=== PATIENT | male | born 1950 | race Caucasian/White ===

== ENCOUNTER 2019-03-23 04:49 | Inpatient (IN) ==
[~2019-03-23 04:49] MED LIST: ATIVAN ONE
[2019-03-23] MEDS ORDERED: ATIVAN IV ONE ×3 (04:52→07:51)
[2019-03-23 05:10] LABS: BE -11.1 mmoll (-3.0-3.0); BLOOD TYPE ARTERIAL; HCO3-(ACT) 16.2 mmoll (20.0-26.0); METHB 1.1 % (0.0-1.5); O2(CT) 22.2 mL/dL (15.0-23.0); O2HB 95.9 % (95.0-99.0); PCO2(98.6) 30 mmHg (35-45); PO2(98.6) 94 mmHg (60-100); SAMPLE BLOOD; SAO2 98.8 % (95.0-100.0); THB 16.4 g/dL (11.5-17.4); pH(98.6) 7.28 (7.35-7.45)
[2019-03-23 05:13] LABS: ALLEN TEST YES; MODALITY ROOM AIR
[2019-03-23 05:20] LABS: BASO# 0.08 X1000 (0.0-0.2); BASO% 0.7 % (0.0-0.8); EOS# 0.44 X1000 (0.0-0.7); EOS% 3.7 % (0.0-10.0); HEMATOCRIT 47.9 % (42.0-52.0); HEMOGLOBIN 15.5 g/dL (14.0-18.0); IMM GRAN# 0.09 X1000 (0.0-0.04); IMM GRAN% 0.7 % (0.0-0.5); LYMPH# 5.63 X1000 (1.2-3.4); LYMPH% 46.8 % (20.5-51.1); MCH 28.4 PG (27-31); MCHC 32.4 g/dL (33-37); MCV 87.9 FL (81-99); MONO# 0.71 X1000 (0.11-0.59); MONO% 5.9 % (1.7-9.3); MPV 9.9 FL (7.4-10.4); NEUT# 5.08 X1000 (1.4-6.5); NEUT% 42.2 % (42.2-75.2); PLT 262 X1000 (130-400); RBC 5.45 XMIL (4.7-6.1); RDW 13.5 % (11.5-14.5); WBC 12.03 X1000 (4.8-10.8)
[2019-03-23 05:34] LABS: AGAP 27; ALKALINE PHOSPHATASE 85 U/L (32-122); BUN 7 mg/dL (8-22); CALCIUM 10.1 mg/dL (8.8-10.2); CHLORIDE 99 mmol/L (98-107); CK PROFILE 104 U/L (24-204); COSMO 288; CREATININE 0.8 mg/dL (0.7-1.2); ESTIMATED GFR > 60; GLUCOSE 195 mg/dL (70-104); GOT 22 U/L (10-34); GPT 20 U/L (10-44); POTASSIUM 4.4 mmol/L (3.5-5.1); SODIUM 143 mmol/L (136-145); TCO2 17 mmol/L (25-35); TOTAL PROTEIN 7.8 g/dL (6.3-8.3)
[2019-03-23 05:40] LABS: INR 1.04; PROTIME 14.1 Seconds (11.0-16.0)
[2019-03-23 05:41] LABS: PTT 27.3 Seconds (22.3-41.8)
[2019-03-23] MEDS ORDERED: NS 1,000 ML IV ONE ×2 (05:46)
--- NOTE | 2019-03-23 06:39 | PROVIDER DOCUMENTATION ---
HPI-Neurological Disorder - General Chief Complaint: Altered Mental Status Stated Complaint: Syncope Time Seen by Provider: 03/23/19 05:41 Source: family, EMS Allergies/Adverse Reactions: Patient Allergies Allergy/AdvReac Type Severity Reaction Status Date / Time Latex, Natural Rubber Allergy RASH Verified 03/23/19 07:41 Home Medications: Home Medication List Medication Instructions Recorded Confirmed Last Taken Type NK [No Home Medications] 03/23/19 03/23/19 Unknown History - History of Present Illness-Neuro Nature of Presenting Problem: hx of dementia out this morning with the dog reportedly fell backward screamed fell hitting forehead on a step thinks he was briefly unconscious Severity: reports: severe Onset/Duration: reports: just prior to arrival Timing: reports: still present, improving Context: reports: head injury Review of Systems - Adult - REVIEW OF SYSTEMS - ADULT Constitutional: reports: no symptoms reported Eyes: reports: no symptoms reported Ears, Nose, Mouth & Throat: reports: no symptoms reported Cardiovascular: reports: no symptoms reported Respiratory: reports: no symptoms reported Gastrointestinal: reports: no symptoms reported Genitourinary: reports: no symptoms reported Musculoskeletal: reports: no symptoms reported Integumentary: reports: no symptoms reported Neurological: reports: no symptoms reported Psychiatric: reports: other (demented) Endocrine: reports: no symptoms reported Hematologic/Lymphatic: reports: no symptoms reported Allergic/Immunologic: reports: no symptoms reported Past History - Adult - PAST MEDICAL HISTORY-ADULT Review of Records: reports: Nursing Assessment Review, Medications Reviewed, Social history reviewed & non-contributory. Major Childhood Illnesses: reports: denies history Cardiovascular: reports: denies history Respiratory: reports: denies history Gastrointestinal: reports: denies history Obstetrical/Gynecological: reports: denies history Genitourinary: reports: denies history Musculoskeletal: reports: denies history Neurological: reports: denies history Endocrine/Immune: reports: denies history Other Conditions: reports: denies history - IMMUNIZATION STATUS Childhood Immunizations: See Nurse Assessment Flu Vaccine: See Nurse Assessment - FAMILY HISTORY Family History: reviewed, not pertinent Physical Exam- Neurological - Physical Exam-Neuro Initial Vital Signs Reviewed: Yes General Appearance: combative Eye Exam: bilateral eye: normal inspection, PERRL, EOMI HENMT: normocephalic/atraumatic, normal ENT inspection Head Injury: no evidence of injury Neck: full range of motion Respiratory: lungs clear, normal breath sounds Cardiovascular: normal peripheral pulses, regular rate, rhythm Abdominal Exam: non tender, soft, no organomegaly Lymphatic: no adenopathy Extremity: normal range of motion, non-tender, normal gait Motor/Sensory: no motor deficit Neurologic: grossly normal Integumentary: normal color, normal turgor, abrasion(s) Psych/Mental Status: disoriented x 3 Progress - PLAN OF CARE/RESULTS Progress/Plan/Lab Results: Vital Signs - 8 hr 03/23/19 05:26 03/23/19 05:39 03/23/19 05:45 Temperature 97.8 F Pulse Rate 100 H 110 H Respiratory Rate 18 15 Blood Pressure 157/81 146/88 O2 Sat by Pulse Oximetry 97 97 Laboratory Results - last 24 hr 03/23/19 03/23/19 03/23/19 05:00 05:02 05:02 WBC 12.03 H RBC 5.45 Hgb 15.5 Hct 47.9 MCV 87.9 MCH 28.4 MCHC 32.4 L RDW Std Deviation 13.5 Plt Count 262 MPV 9.9 Immature Gran % (Auto) 0.7 H Neut % (Auto) 42.2 Lymph % (Auto) 46.8 Greenlee % (Auto) 5.9 Eos % (Auto) 3.7 Baso % (Auto) 0.7 Immature Gran # (Auto) 0.09 H Neut # (Auto) 5.08 Lymph # (Auto) 5.63 H Greenlee # (Auto) 0.71 H Eos # (Auto) 0.44 Baso # (Auto) 0.08 PT INR PTT (Actin FS) Specimen Type ARTERIAL Sample Site R BRACHIAL pH 7.28 L pCO2 30 L pO2 94 HCO3 16.2 L Base Excess -11.1 L Oxyhemoglobin 95.9 ABG O2 Sat (Calculated) 22.2 ABG O2 Saturation 98.8 ABG Carboxyhemoglobin 1.70 ABG Methemoglobin 1.1 Yaw Test YES A-a O2 Difference 18.0 Total Hemoglobin 16.4 Lactate 12.00 H* Blood Gas Modality ROOM AIR FiO2 % 21.0 Sodium Potassium Chloride Carbon Dioxide Anion Gap BUN Creatinine Estimated GFR/1.73 m2 BUN/Creatinine Ratio Glucose Calculated Osmolality Calcium Total Bilirubin AST ALT Alkaline Phosphatase Creatine Kinase Troponin T High Sens Total Protein Albumin Globulin Albumin/Globulin Ratio Plasma Lactate Plasma/Serum Ethyl Alc 1 H 03/23/19 03/23/19 03/23/19 05:02 05:02 05:02 WBC RBC Hgb Hct MCV MCH MCHC RDW Std Deviation Plt Count MPV Immature Gran % (Auto) Neut % (Auto) Lymph % (Auto) Greenlee % (Auto) Eos % (Auto) Baso % (Auto) Immature Gran # (Auto) Neut # (Auto) Lymph # (Auto) Greenlee # (Auto) Eos # (Auto) Baso # (Auto) PT 14.1 INR 1.04 PTT (Actin FS) 27.3 Specimen Type Sample Site pH pCO2 pO2 HCO3 Base Excess Oxyhemoglobin ABG O2 Sat (Calculated) ABG O2 Saturation ABG Carboxyhemoglobin ABG Methemoglobin Yaw Test A-a O2 Difference Total Hemoglobin Lactate Blood Gas Modality FiO2 % Sodium 143 Potassium 4.4 Chloride 99 Carbon Dioxide 17 L Anion Gap 27 BUN 7 L Creatinine 0.8 Estimated GFR/1.73 m2 > 60 BUN/Creatinine Ratio 9 Glucose 195 H Calculated Osmolality 288 Calcium 10.1 Total Bilirubin 2.30 H AST 22 ALT 20 Alkaline Phosphatase 85 Creatine Kinase 104 Troponin T High Sens Total Protein 7.8 Albumin 5.0 Globulin 3.0 Albumin/Globulin Ratio 2.0 Plasma Lactate 10.1 H* Plasma/Serum Ethyl Alc 03/23/19 05:02 WBC RBC Hgb Hct MCV MCH MCHC RDW Std Deviation Plt Count MPV Immature Gran % (Auto) Neut % (Auto) Lymph % (Auto) Greenlee % (Auto) Eos % (Auto) Baso % (Auto) Immature Gran # (Auto) Neut # (Auto) Lymph # (Auto) Greenlee # (Auto) Eos # (Auto) Baso # (Auto) PT INR PTT (Actin FS) Specimen Type Sample Site pH pCO2 pO2 HCO3 Base Excess Oxyhemoglobin ABG O2 Sat (Calculated) ABG O2 Saturation ABG Carboxyhemoglobin ABG Methemoglobin Yaw Test A-a O2 Difference Total Hemoglobin Lactate Blood Gas Modality FiO2 % Sodium Potassium Chloride Carbon Dioxide Anion Gap BUN Creatinine Estimated GFR/1.73 m2 BUN/Creatinine Ratio Glucose Calculated Osmolality Calcium Total Bilirubin AST ALT Alkaline Phosphatase Creatine Kinase Troponin T High Sens 9 Total Protein Albumin Globulin Albumin/Globulin Ratio Plasma Lactate Plasma/Serum Ethyl Alc Orders Category Date Time Status Cardiac Monitoring DIRECTED Care 03/23/19 04:51 Active Finger Stick Blood Sugar (ED) DIRECTED Care 03/23/19 04:51 Active Oxygen Therapy- ED Nursing DIRECTED Care 03/23/19 04:51 Active Restraint Initiate NonViolent ONCE Care 03/23/19 05:08 Active Saline Loc NOW Care 03/23/19 04:51 Active CHEST-PORTABLE [RAD] Stat Exams 03/23/19 04:[address] HEAD W/O CONTRAST [CT] Stat Exams 03/23/19 05:05 Taken ABG [RESP] Routine Lab 03/23/19 05:00 Completed ALCOHOL BLOOD Stat Lab 03/23/19 05:02 Completed CBC WITH ELECTRONIC DIFF [HEME] Stat Lab 03/23/19 05:02 Completed CK PROFILE [SP CHEM] Stat Lab 03/23/19 05:02 Completed COMPREHENSIVE METABOLIC PANEL [CHEM] Stat Lab 03/23/19 05:02 Completed LACTATE, PLASMA [CHEM] Stat Lab 03/23/19 05:02 Completed PROTIME WITH INR [COAG] Stat Lab 03/23/19 05:02 Completed PTT [COAG] Stat Lab 03/23/19 05:02 Completed TROPONIN T HIGH SENSITIVITY Stat Lab 03/23/19 05:02 Completed URINE DRUG SCREEN PL Stat Lab 03/23/19 04:51 Uncollected 0.9% Sodium Chloride Inj [Ns] 1,000 ml Med 03/23/19 05:46 Active IV 999 mls/hr 0.9% Sodium Chloride Inj [Ns] 1,000 ml Med 03/23/19 05:46 Discontinued IV 999 mls/hr Lorazepam [Ativan] Med 03/23/19 04:52 Discontinued 1 mg IV NOW ONE Lorazepam [Ativan] Med 03/23/19 05:13 Discontinued 1 mg IV NOW ONE Lorazepam [Ativan] Med 03/23/19 04:49 Discontinued 2 mg .ROUTE .STK-MED ONE Altered Mental Status Stat Oth 03/23/19 04:49 Ordered EKG [EKG] Stat Ther 03/23/19 04:51 Ordered Result Diagrams: 03/23/19 05:02 03/23/19 05:02 - REASSESSMENT Reassessment #1 Time Reassessed: 07:25 Status: other (pt restless, will admit. administer ativan 1 mg.) - EKG 1 Time of EKG reading by physician:: 07:32 EKG Interpretation (*Must complete 3 of following elements*): Abnormal Rate: 120 ST Wave: non-specific ST changes Comments: Sinus tachycardia - XRAY 1 XRAY Study: Chest Impression: Abnormal (interstital markings increasd) - CT/MRI 1 CT Study: Head Impression: Normal - CONSULTS/PCP/HOSPITALIST Notification #1 *Consult/PCP/Hospitalist*: Dr Nielson Time Discussed: 07:30 Consult Disposition: Will see in ED, Admit Departure - Departure Date of Disposition Decision: 03/23/19 Time of Disposition Decision: 07:30 DIAGNOSIS: AMS (altered mental status), Fall, Dementia Disposition: ADMITTED INPATIENT 09 Certified Medical Emergency: Emergent Condition: Stable Referrals and Follow-Ups: Julieta Viera CRNP [Primary Care Provider] - - Critical Care Note This patient required my direct & personal management of CC.: No Attestation - Physician/ LOBITO Attestation Patient care was provided by Advanced Practice Provider:: No The physician spent face to face time with patient:: Yes Advanced Practice Provider documentation review:: Supervising physician onsite and consulted in the evaluation and care of this patient. The physician did have a face to face encounter with the patient.
--- NOTE | 2019-03-23 06:40 | Diag Imaging Result Doc PS360 ---
CT HEAD W/O CONTRAST - 03/23/2019 INDICATION: ams/ injury COMPARISON: 11/23/2018 FINDINGS: Stable mild cerebral atrophy diffusely. No intracranial mass or hemorrhage. The skull is intact. The sinuses, mastoids, and middle ears are clear. Soft tissues are clear. IMPRESSION: No acute injury. This exam was performed using automated exposure control, adjustment of mA or kV according to patient size, and/or use of iterative reconstruction technique Electronically signed by Eulogio Woods 03/23/2019 6:37 AM
[2019-03-23 06:44] LABS: BE -2.7 mmoll (-3.0-3.0); BLOOD TYPE ARTERIAL; HCO3-(ACT) 22.7 mmoll (20.0-26.0); METHB 1.4 % (0.0-1.5); O2(CT) 20.5 mL/dL (15.0-23.0); O2HB 94.6 % (95.0-99.0); PCO2(98.6) 40 mmHg (35-45); PO2(98.6) 76 mmHg (60-100); SAMPLE BLOOD; SAO2 97.7 % (95.0-100.0); THB 15.4 g/dL (11.5-17.4); pH(98.6) 7.36 (7.35-7.45)
[2019-03-23] MEDS ORDERED: ROCEPHIN 1 GM in NS 50 ML IV ONE (06:48)
[2019-03-23 06:49] LABS: ALLEN TEST YES; MODALITY ROOM AIR
[2019-03-23 06:55] LABS: UR AMPHETAMINES QUAL NONE DETECTED (NONE DETECT); UR BARBITUATES QUAL NONE DETECTED (NONE DETECT); UR BENZODIAZEPIN QUAL NONE DETECTED (NONE DETECT); UR CANNABINOIDS QUAL NONE DETECTED (NONE DETECT); UR COCAINE QUAL NONE DETECTED (NONE DETECT); UR METHADONE QUAL NONE DETECTED (NONE DETECT); UR METHAMPHETAMINE QUAL NONE DETECTED (NONE DETECT); UR OPIATES QUAL NONE DETECTED (NONE DETECT); UR OXYCODONE QUAL NONE DETECTED (NONE DETECT); UR PCP QUAL NONE DETECTED (NONE DETECT); UR PROPOXYPHENE QUAL NONE DETECTED (NONE DETECT); UR TCA QUAL NONE DETECTED (NONE DETECT)
[2019-03-23 07:03] LABS: URINE SOURCE CATH
--- NOTE | 2019-03-23 07:38 | Diag Imaging Result Doc PS360 ---
EXAM: CHEST-PORTABLE - 03/23/2019 HISTORY: ams TECHNIQUE: Portable chest COMPARISON: 11/23/2018 FINDINGS: Heart size is normal. Inspiration is mildly shallow. Lungs appear essentially clear. There is no consolidation, pleural effusion, or pneumothorax identified. IMPRESSION: Mildly shallow inspiration. No other evidence of acute disease. Electronically signed by Kobe Frances 03/23/2019 7:35 AM
[2019-03-23] MEDS ORDERED: NS 1,000 ML ONE (07:50)
[2019-03-23 08:02] LABS: UR EPITHELIAL CELLS <10 /HPF (<10); URINE BACTERIA NEGATIVE /HPF; URINE CASTS NONE SEEN; URINE RBC <10 /HPF (<10); URINE WBC <10 /HPF (<10); URINE YEAST NONE SEEN
[2019-03-23 08:03] LABS: BILIRUBIN URINE NEGATIVE (NEGATIVE); BLOOD URINE NEGATIVE (NEGATIVE); COLOR YELLOW; GLUCOSE URINE 70 mg/dL (NEGATIVE); KETONE URINE 10 mg/dL (NEGATIVE); SP GRAVITY URINE 1.014; TURBIDITY URINE HAZY (CLEAR); URINE CRYSTALS NONE SEEN; URINE SMALL ROUND CELLS NONE SEEN
[2019-03-23 08:04] LABS: NITRITE URINE NEGATIVE (NEGATIVE); PROTEIN URINE 20 mg/dL (NEGATIVE); UROBILINOGEN URINE 2 mg/dL (NORMAL)
[2019-03-23 08:05] LABS: LEUKOCYTES URINE NEGATIVE (NEGATIVE)
--- NOTE | 2019-03-23 08:10 | EKG Report ---
Test Performed on : 03/23/2019 07:32:46 AM Test Reason : ams Blood Pressure : / mmHG Vent. Rate : 120 BPM Atrial Rate : 120 BPM P-R Int : 170 ms QRS Dur : 084 ms QT Int : 320 ms P-R-T Axes : 067 007 058 degrees QTc Int : 452 ms Sinus tachycardia. Possible Inferior infarct , age undetermined Abnormal ECG When compared with ECG of 23-NOV-2018 13:35, Vent. rate has increased BY 55 BPM Borderline criteria for Inferior infarct are now present Unconfirmed Result
[2019-03-23] MEDS ORDERED: ZOFRAN IV PRN (09:15)
[2019-03-23] MEDS: HALDOL IM PRN ×3 (10:50→22:50)
[2019-03-23] MEDS ORDERED: TYLENOL PR ONE (17:07)
[2019-03-23] MEDS ORDERED: PNEUMOVAX 23 IM ONE (18:27)
--- NOTE | 2019-03-23 20:15 | HISTORY AND PHYSICAL ---
CHIEF COMPLAINT: Fall, head injury, altered mental status. HISTORY OF PRESENT ILLNESS: This is a 68-year-old gentleman with a history of dementia, diabetes mellitus and hyperlipidemia. He presents to the emergency room via EMS with family members after falling. The and daughter state that the patient got up to check on his dogs. He fell backwards and hit his head. The family confirmed a positive loss of consciousness. They stated they called 911 and were advised to start CPR prior to EMS arrival. EMS reported that when they arrived on the scene, the patient was breathing with a pulse. Reportedly, the patient became combative during transport and required restraints on arrival to the emergency room. He was noted to have a right frontal forehead contusion with skin tears to bilateral elbows, is unsure when these were actually obtained. PAST MEDICAL HISTORY: 1. Diabetes mellitus. 2. Hyperlipidemia. 3. Dementia. 4. Prostate enlargement. PAST SURGICAL HISTORY: Denies. SOCIAL HISTORY: He is , lives with his . Denies any alcohol, tobacco, or illicit drug use. ALLERGIES: Latex, which causes a rash. HOME MEDICATIONS: None. REVIEW OF SYSTEMS: Unable to obtain. PHYSICAL EXAMINATION: GENERAL: This is a 68-year-old gentleman who is lying on the stretcher in the emergency room in no distress. VITAL SIGNS: Blood pressure is 142/83 with a heart rate of 100, respirations are 20, temperature is 97.8 degrees with O2 saturations that are 98% on 2 L nasal cannula. EYES: Pupils are equal, round, react to light. EOMs are intact. Sclerae anicteric. HEENT: Head is normocephalic, atraumatic. Mucous membranes are moist. NECK: Supple with trachea midline. CARDIOVASCULAR: Regular rate and rhythm. S1 and S2 appreciated. No murmur. Peripheral pulses are palpable x4 extremities. PULMONARY: Breath sounds are clear with no increased work of breathing noted. GASTROINTESTINAL: Abdomen is soft, nondistended, with bowel sounds in all 4 quadrants. NEUROLOGIC: He is alert. He is nonverbal. He does not follow commands. He moves extremities at random. He does withdraw from pain. SKIN: Warm and dry. LABORATORY DATA: WBC is 12.0 with hemoglobin 15.5, hematocrit 47.9, platelets 262,000. INR is 1.04. Sodium 143, potassium 4.4, BUN 7, creatinine 0.8 with a glucose of 195. CPK is 104 with a troponin of 9 and a lactate of 10. Urine drug screen reveals none detected. Blood alcohol 1. ABGs on arrival, pH is 7.28 with pCO2 30, pO2 94 and bicarb of 16.2 with a lactate of 12. This was on room air. At 6:30, pH is 7.36 with pCO2 of 40, pO2 of 76, bicarb of 22, and a lactate of 4. Blood cultures are pending. IMAGIN. CT of the head reveals no acute injury. Stable mild cerebral atrophy diffusely. No intracranial mass or hemorrhage. Skull is intact. Sinuses, mastoids, and middle ears are clear. Soft tissues are clear. 2. Chest x-ray: Mildly shallow inspiration. No other evidence of acute disease. ASSESSMENT AND PLAN: 1. Fall. 2. Questionable syncopal episode. 3. Altered mental status. 4. Dementia. 5. Diabetes mellitus. 6. Hyperlipidemia. 7. Leukocytosis. This could be reactive, most likely secondary to fall and chest compressions. PLAN: The patient will be admitted to the hospital. He will be placed on telemetry. We will continue restraints as needed for safety. Supplemental oxygen as needed. We will continue with the Julian catheter for accurate I and O, check blood sugars, pattern blood glucose with sliding scale insulin. We will identify his home medications and continue as appropriate when he is taking p.o. medications. We will use Zofran for nausea. We will give Haldol 5 mg IM q.4 hours p.r.n. agitation. We will check a CBC and a CMP and magnesium in the morning. The patient will be admitted to the medical-surgical floor. He will be placed in a room that has a view from the desk at all times with a bed alarm and fall precautions. Plan was discussed with Dr Nielson Further treatments pending hospital course. Dictated by BELLA Betancourt for Riky Nielson MD cc: BELLA Betancourt MD [facility]
--- NOTE | 2019-03-23 20:35 | HISTORY AND PHYSICAL ---
ADDENDUM: Patient presented to the hospital via his family. He does have a history of dementia. He apparently had gone out this morning to walk his dog. After coming back, the noticed that he was confused. He actually fell. They brought him to the hospital. Currently, he is altered, somewhat combative. We are going to admit him to the hospital, place him on antibiotics. His labs are normal. We will use Haldol as needed. We will check blood and urine cultures, and we will follow. cc: Riky Nielson MD
[2019-03-23] MEDS: HUMULIN R SUBQ SCH (22:51)
[2019-03-24] MEDS: HUMULIN R SUBQ SCH (06:03)
[2019-03-24 06:51] LABS: BASO# 0.02 X1000 (0.0-0.2); BASO% 0.2 % (0.0-0.8); EOS# 0.05 X1000 (0.0-0.7); EOS% 0.5 % (0.0-10.0); HEMATOCRIT 45.6 % (42.0-52.0); HEMOGLOBIN 15.2 g/dL (14.0-18.0); IMM GRAN# 0.02 X1000 (0.0-0.04); IMM GRAN% 0.2 % (0.0-0.5); LYMPH# 0.99 X1000 (1.2-3.4); LYMPH% 9.2 % (20.5-51.1); MCH 28.9 PG (27-31); MCHC 33.3 g/dL (33-37); MCV 86.7 FL (81-99); MONO# 0.89 X1000 (0.11-0.59); MONO% 8.2 % (1.7-9.3); NEUT# 8.84 X1000 (1.4-6.5); NEUT% 81.7 % (42.2-75.2); PLT 190 X1000 (130-400); RBC 5.26 XMIL (4.7-6.1); RDW 13.2 % (11.5-14.5); WBC 10.81 X1000 (4.8-10.8)
[2019-03-24 07:53] LABS: AGAP 15; ALBUMIN 4.6 g/dL (3.5-5.0); ALKALINE PHOSPHATASE 74 U/L (32-122); BUN 8 mg/dL (8-22); CALCIUM 9.6 mg/dL (8.8-10.2); CHLORIDE 100 mmol/L (98-107); COSMO 277; CREATININE 0.6 mg/dL (0.7-1.2); ESTIMATED GFR > 60; GLUCOSE 126 mg/dL (70-104); GOT 134 U/L (10-34); GPT 34 U/L (10-44); MAGNESIUM 2.3 mg/dL (1.5-2.7); SODIUM 139 mmol/L (136-145); TCO2 24 mmol/L (25-35); TOTAL PROTEIN 7.6 g/dL (6.3-8.3)
[2019-03-24] MEDS ORDERED: ATIVAN IV ONE ×2 (09:06→14:00)
[2019-03-24] MEDS ORDERED: ZOFRAN IV PRN (09:08)
[2019-03-24] MEDS: ROCEPHIN 1 GM in NS 50 ML IV SCH (10:03)
[2019-03-24] MEDS: HUMULIN R (PARKWAY) SUBQ SCH ×2 (13:59→16:51)
[2019-03-24] MEDS: HALDOL IM PRN ×2 (14:49→22:43)
--- NOTE | 2019-03-24 21:16 | NEUROLOGY CONSULTATION ---
DATE: 03/24/2019 Mr. Cross is 68 years old, and he has been reported to have an altered mental state following a fall. History from review of the hospital records and discussion at the bedside with attentive and daughter is that he began having forgetfulness a year or so ago. That has been gradually more prominent. reports trial with medicine to help memory was associated with "bad reaction" which sounds like restlessness. She does not recall the name of the medicine. She does not recall any other medication trial for management of memory failure. As per his usual, he was up very early yesterday morning and took the dog on a leash for a walk outside. He returned in several minutes and seemed well. was visiting with him then, and as she was taking the dog off the leash, the patient began to moan and appeared to look up and then began to collapse. He fell forward and struck his head hard on cement garage floor. believes he was unconscious for several minutes. Ambulance was summoned. He became gradually more responsive. There was never a definite focal neurologic feature. He did not have any subsequent altered consciousness or altered awareness. There was not reported definite limb rigidity, limb jerking, incontinence, tongue or lip biting or other seizure-like feature. According to family, he is much improved today but still not quite back to baseline. There is not history of other recent head injury. He has never had diagnosed stroke, seizure, other neurologic event. Serum ethanol level was reported 1 mg/dL on admission here, and family is adamant that he has not used ethanol. Urine drug screen was negative. Other labs showed WBC 12,000, blood sugars initially 190s, later 110s-130s. AST went from 22 to 134. ALT continued within normal range. He had 1 temperature recorded 100.3 yesterday. He has been afebrile today. He is to go for MRI now. PHYSICAL EXAMINATION: Mr. Cross is awake, mostly alert and attentive. He followed simple commands. He did well with bedside testing of language function. He identified the hospital by the name of the town. He could not discuss recent news with accurate detail. I did not test his cognitive function further. Head and neck are unremarkable. There is no meningismus. There are some ecchymoses across the face. Visual field is full tested grossly by confrontational finger counting. Extraocular movements are full laterally, and there is slightly diminished upgaze, typical for age. Facial motility is diminished bilaterally, but symmetric. Gag is intact. Tongue is midline. He can hear. Shoulder shrug is equal. Strength is normal in the arms and legs. He did well on [id number] testing bilaterally. Limb tone is symmetric. Plantar response is silent bilaterally. He reports good sensation over the limbs symmetrically. I did not test his gait. IMPRESSION: 1. Reported recent fall with head injury and apparent transient unconsciousness. 2. Reported increased confusion greater than baseline, slowly improving over the last 24 hours. 3. Baseline confusion with features typical of dementia/major neurocognitive disorder, most likely Alzheimer disease. There is report that he did not tolerate 1 medication which may or may not have been a cholinesterase inhibitor. When all else is stable, it might be reasonable to consider carefully trying medicines specifically for his dementia again. My best impression is that he has a transient exacerbation of his baseline cognitive impairment syndrome associated with recent head injury. There may be some fairly minor toxic or metabolic disturbances contributing to encephalopathy. I do not see clinical evidence of increased intracranial pressure. MRI is to be done now and that will be very helpful in ruling out other problems. If MRI is unremarkable, I do not think we will need anything further urgently from neurologic standpoint. If he does not recover to baseline, we might consider EEG electively. Thanks for asking Neurology to see Mr. Cross. cc: MD TARA Espinosa III
[2019-03-25] MEDS: HUMULIN R (PARKWAY) SUBQ SCH ×5 (00:40→22:05)
[2019-03-25 06:09] LABS: BASO# 0.03 X1000 (0.0-0.2); BASO% 0.3 % (0.0-0.8); EOS# 0.04 X1000 (0.0-0.7); EOS% 0.4 % (0.0-10.0); HEMATOCRIT 45.8 % (42.0-52.0); HEMOGLOBIN 15.5 g/dL (14.0-18.0); IMM GRAN# 0.02 X1000 (0.0-0.04); IMM GRAN% 0.2 % (0.0-0.5); LYMPH# 1.19 X1000 (1.2-3.4); LYMPH% 11.9 % (20.5-51.1); MCH 29.1 PG (27-31); MCHC 33.8 g/dL (33-37); MCV 86.1 FL (81-99); MONO# 0.89 X1000 (0.11-0.59); MONO% 8.9 % (1.7-9.3); MPV 9.7 FL (7.4-10.4); NEUT# 7.84 X1000 (1.4-6.5); NEUT% 78.3 % (42.2-75.2); PLT 185 X1000 (130-400); RBC 5.32 XMIL (4.7-6.1); RDW 13.2 % (11.5-14.5); WBC 10.01 X1000 (4.8-10.8)
[2019-03-25 06:21] LABS: AGAP 13; ALBUMIN 4.2 g/dL (3.5-5.0); ALKALINE PHOSPHATASE 67 U/L (32-122); BUN 10 mg/dL (8-22); CALCIUM 9.2 mg/dL (8.8-10.2); CHLORIDE 101 mmol/L (98-107); COSMO 278; CREATININE 0.5 mg/dL (0.7-1.2); ESTIMATED GFR > 60; GLUCOSE 132 mg/dL (70-104); GOT 125 U/L (10-34); GPT 37 U/L (10-44); POTASSIUM 3.7 mmol/L (3.5-5.1); SODIUM 139 mmol/L (136-145); TCO2 26 mmol/L (25-35); TOTAL PROTEIN 7.4 g/dL (6.3-8.3)
[2019-03-25] MEDS: ROCEPHIN 1 GM in NS 50 ML IV SCH (09:52)
[2019-03-25] MEDS ORDERED: MOTRIN PO ONE (10:32)
--- NOTE | 2019-03-26 00:43 | PROGRESS NOTE ---
DATE: 03/25/2019 SUBJECTIVE: The patient himself is more calm. He does not follow questions nor answers commands. PHYSICAL EXAMINATION: Vital Signs: Temperature 98 degrees, pulse 90, respiratory 18, BP 157/67. General: Patient is pleasant. He is calm. He currently is in restraints. The family is not currently in the room. HEENT: Normocephalic. Neck: Supple. Cardiovascular: Regular rate. Chest: Clear. Abdomen: Soft. Extremities: Moves all extremities. Neurologic: The patient is more calm than he was yesterday. Still not alert or oriented. He is awake. ASSESSMENT: 1. Adult failure to thrive. 2. Leukocytosis. 3. Elevated lactate of undetermined origin, currently resolved. 4. Dementia. 5. Diabetes. 6. Questionable syncopal episode. PLAN: We will continue patient in the hospital today. We will attempt to remove his restraints as long as the family is awake and at the bedside. Last night they were sound asleep and Mr. Cross became agitated and was a threat to harm himself. cc: Riky Nielson MD
[2019-03-26] MEDS: HUMULIN R (PARKWAY) SUBQ SCH ×2 (06:01→11:42)
[2019-03-26 07:26] LABS: AGAP 13; ALBUMIN 3.9 g/dL (3.5-5.0); ALKALINE PHOSPHATASE 64 U/L (32-122); BUN 10 mg/dL (8-22); CHLORIDE 101 mmol/L (98-107); COSMO 278; CREATININE 0.5 mg/dL (0.7-1.2); ESTIMATED GFR > 60; GLUCOSE 127 mg/dL (70-104); GOT 129 U/L (10-34); GPT 43 U/L (10-44); POTASSIUM 3.8 mmol/L (3.5-5.1); SODIUM 139 mmol/L (136-145); TCO2 26 mmol/L (25-35); TOTAL PROTEIN 7.1 g/dL (6.3-8.3)
[2019-03-26] MEDS: ROCEPHIN 1 GM in NS 50 ML IV SCH (08:43)
[2019-03-26 11:53] VITALS: BP 119/77
--- NOTE | 2019-03-27 12:19 | DISCHARGE SUMMARY ---
ADMISSION DATE: 03/23/2019 DISCHARGE DATE: 03/26/2019 DISCHARGE DIAGNOSES: 1. Acute neurologic event of undetermined origin. 2. Frequent falls. 3. Altered mental status, resolved. 4. Dementia. 5. Diabetes. 6. Hyperlipidemia. CONSULTATIONS: Dr. Abrams PROCEDURES: None. BRIEF HOSPITAL COURSE: The patient is a 68-year-old male who unfortunately has a known history of dementia. He presented as noted in the HPI with confusion and disorientation. He was agitated for 2 days in the hospital. That has thankfully resolved. He was unable to perform an MRI secondary to his agitation. The family notes that he is back to his baseline. DISPOSITION: We will discharge him home. He will continue all of his home medications without any changes. He will follow up with Neurology of choice if symptoms can return. Currently, he is back to his baseline. TIME SPENT: Greater than 30 minutes were spent in total. cc: Riky Nielson MD
== END 2019-03-26 12:42 | disposition home or self-care (01) | DRG 93 ==
LOC: P.ED 04:49 → P.MEDSURG 17:03
PROVIDERS: ATTEND Family Medicine

== ENCOUNTER 2019-04-02 15:56 | Observation (INO) ==
[2019-04-02] MEDS ORDERED: ASPIRIN PO ONE (16:08)
[2019-04-02 16:29] LABS: BASO# 0.06 X1000 (0.0-0.2); BASO% 0.8 % (0.0-0.8); EOS# 0.16 X1000 (0.0-0.7); EOS% 2.1 % (0.0-10.0); HEMATOCRIT 43.1 % (42.0-52.0); HEMOGLOBIN 14.4 g/dL (14.0-18.0); LYMPH# 2.09 X1000 (1.2-3.4); MCHC 33.4 g/dL (33-37); MCV 86.9 FL (81-99); MONO# 0.49 X1000 (0.11-0.59); MONO% 6.6 % (1.7-9.3); MPV 9.4 FL (7.4-10.4); NEUT# 4.67 X1000 (1.4-6.5); NEUT% 62.5 % (42.2-75.2); PLT 280 X1000 (130-400); RBC 4.96 XMIL (4.7-6.1); RDW 13.2 % (11.5-14.5); WBC 7.47 X1000 (4.8-10.8)
[2019-04-02 16:37] LABS: INR 0.97
[2019-04-02 16:38] LABS: PTT 27.5 Seconds (22.3-41.8)
--- NOTE | 2019-04-02 16:43 | Diag Imaging Result Doc PS360 ---
EXAM: CHEST-2 VIEWS 04/02/2019 HISTORY: Chest pain TECHNIQUE: PA and lateral chest COMMENT: There is no evidence of acute cardiac or pulmonary disease. Compared to 11/23/2018 the inspiration is better otherwise there has been no significant change. IMPRESSION: No evidence of acute disease. Electronically signed by Jose Angel Regalado 04/02/2019 4:41 PM
[2019-04-02 16:47] LABS: AGAP 14; ALB/GLOB RATIO 1.5; ALBUMIN 4.2 g/dL (3.5-5.0); ALKALINE PHOSPHATASE 97 U/L (32-122); BUN 8 mg/dL (8-22); CALCIUM 9.3 mg/dL (8.8-10.2); CHLORIDE 98 mmol/L (98-107); COSMO 270; CREATININE 0.8 mg/dL (0.7-1.2); ESTIMATED GFR > 60; GLUCOSE 98 mg/dL (70-104); GOT 33 U/L (10-34); GPT 35 U/L (10-44); POTASSIUM 4.2 mmol/L (3.5-5.1); SODIUM 136 mmol/L (136-145); TCO2 24 mmol/L (25-35); TOTAL BILIRUBIN 1.49 mg/dL (0.20-1.00)
[2019-04-02 16:52] LABS: CK PROFILE 227 U/L (24-204)
[2019-04-02 17:07] LABS: CK INDEX 1.6 (0.0-2.5); CK-MB 3.63 ng/mL (0.0-5.0)
--- NOTE | 2019-04-02 17:23 | EKG Report ---
Test Performed on : 04/02/2019 3:57:14 PM Test Reason : Chest pain Blood Pressure : / mmHG Vent. Rate : 064 BPM Atrial Rate : 064 BPM P-R Int : 138 ms QRS Dur : 072 ms QT Int : 406 ms P-R-T Axes : 060 035 039 degrees QTc Int : 418 ms Normal sinus rhythm. Normal ECG When compared with ECG of 23-MAR-2019 07:32, (Unconfirmed) Vent. rate has decreased BY 56 BPM Borderline criteria for Inferior infarct are no longer present Nonspecific T wave abnormality no longer evident in Anterior leads Unconfirmed Result
--- NOTE | 2019-04-02 19:08 | PROVIDER DOCUMENTATION ---
This chart was entered by Tess Solitario Scribe, acting as scribe for Norm Rodriguez MD. HPI-General Adult - General Source: patient, family - History of Present Illness -Gen Adult Nature of Presenting Problems: 68 y/o male with history of dementia presents to the ED with complaint of chest pain 3/10 and SOB times two days, however, on further questioning the patient's daughter states the patient has been complaining of this intermittently since March 24. No previous cardiac history. No aspirin or nitro today. Daughter states the patient had syncopal episode March 24 and she performed CPR as instructed by tuber operator and she may have inured the patient's chest as well as AMS since that time. Daughter gives a history of allergy to latex. Location of Pain/Injury: reports: chest Onset/Duration: reports: unsure Timing: reports: intermittent Recently seen or treated by another doctor?: Yes (discharged 1 week ago ) <Norm Rodriguez - Last Filed: 04/02/19 19:08> <Brett Aguiar - Last Filed: 04/02/19 21:00> - General Chief Complaint: Chest Pain Stated Complaint: CHEST PAIN Time Seen by Provider: 04/02/19 16:04 Allergies/Adverse Reactions: Patient Allergies Allergy/AdvReac Type Severity Reaction Status Date / Time Latex, Natural Rubber Allergy RASH Verified 03/23/19 07:41 Home Medications: Home Medication List Medication Instructions Recorded Confirmed Last Taken Type CefDINIR [Omnicef] 300 mg PO BID #10 cap 03/26/19 Unknown Rx Review of Systems - Adult - REVIEW OF SYSTEMS - ADULT Constitutional: denies: chills, fever, weight gain Eyes: reports: no symptoms reported Ears, Nose, Mouth & Throat: reports: no symptoms reported Cardiovascular: reports: chest pain (sternal). denies: palpitations, syncope Respiratory: reports: shortness of breath. denies: hemoptysis, wheezing Gastrointestinal: denies: diarrhea, nausea, vomiting Genitourinary: reports: no symptoms reported Musculoskeletal: reports: no symptoms reported Integumentary: reports: no symptoms reported Neurological: reports: no symptoms reported Psychiatric: reports: no symptoms reported Endocrine: reports: no symptoms reported Hematologic/Lymphatic: reports: no symptoms reported Allergic/Immunologic: reports: no symptoms reported All Other Systems: Reviewed and Negative <Norm Rodriguez - Last Filed: 04/02/19 19:08> Past History - Adult - PAST MEDICAL HISTORY-ADULT Review of Records: reports: Nursing Assessment Review, Medications Reviewed Major Childhood Illnesses: reports: denies history Cardiovascular: reports: denies history Respiratory: reports: denies history Gastrointestinal: reports: denies history Obstetrical/Gynecological: reports: denies history Genitourinary: reports: denies history Musculoskeletal: reports: denies history Neurological: reports: denies history Endocrine/Immune: reports: denies history Other Conditions: reports: denies history - IMMUNIZATION STATUS Childhood Immunizations: See Nurse Assessment Flu Vaccine: See Nurse Assessment - FAMILY HISTORY Family History: reviewed, not pertinent - SOCIAL HISTORY Smoking: non-smoker Living Situation: family <Norm Rodriguez - Last Filed: 04/02/19 19:08> Physical Exam-General - PHYSICAL EXAM-ADULT Initial Vital Signs Reviewed: Yes - CONSTITUTIONAL General Appearance: alert, no apparent distress - EYES Eyes: PERRL/EOMI - HEAD, EARS, NOSE, MOUTH & THROAT HENMT: normocephalic/atraumatic, moist mucous membranes - NECK Neck: full range of motion, supple - RESPIRATORY Respiratory: lungs clear, normal breath sounds, other (tender sternum). negative: rales, rhonchi, wheezing, crepitus - CARDIOVASCULAR Cardiovascular: regular rate, rhythm, no edema, no gallop, no JVD, no murmur - GASTROINTESTINAL (ABDOMEN) Abdominal Exam: non tender, soft. negative: guarding, rebound - MUSCULOSKELETAL Extremity: no pedal edema - SKIN Integumentary: normal color, warm/dry. negative: diaphoresis - NEUROLOGIC Neurologic: grossly normal <Norm Rodriguez - Last Filed: 04/02/19 19:08> Progress - PLAN OF CARE/RESULTS Progress/Plan/Lab Results: Vital Signs - 8 hr 04/02/19 16:04 Temperature 97.7 F Pulse Rate 67 Respiratory Rate 14 Blood Pressure 119/75 O2 Sat by Pulse Oximetry 99 Orders Category Date Time Status Cardiac Monitoring DIRECTED Care 04/02/19 16:08 Active Oxygen Therapy- ED Nursing DIRECTED Care 04/02/19 16:08 Active Saline Loc NOW Care 04/02/19 16:08 Active CHEST-2 VIEWS [RAD] Stat Exams 04/02/19 16:08 Ordered CBC WITH ELECTRONIC DIFF [HEME] Stat Lab 04/02/19 16:08 Uncollected CK PROFILE [SP CHEM] Stat Lab 04/02/19 16:08 Uncollected COMPREHENSIVE METABOLIC PANEL [CHEM] Stat Lab 04/02/19 16:08 Uncollected PRO B-NATRIURETIC PEPTIDE Stat Lab 04/02/19 16:08 Uncollected PROTIME WITH INR [COAG] Stat Lab 04/02/19 16:08 Uncollected PTT [COAG] Stat Lab 04/02/19 16:08 Uncollected TROPONIN T HIGH SENSITIVITY Stat Lab 04/02/19 16:08 Uncollected Aspirin Med 04/02/19 16:08 Discontinued 325 mg PO NOW ONE CP/SOB/Palp >45 yrs of Age Stat Oth 04/02/19 16:08 Ordered EKG [EKG] Stat Ther 04/02/19 16:08 Ordered Result Diagrams: 04/02/19 16:15 04/02/19 16:15 - REASSESSMENT Reassessment #1 Time Reassessed: 17:34 Status: unchanged Reassessment Comment: informed patient and family of additional study ordered Reassessment #2 Time Reassessed: 18:15 Status: improving (NO CHEST PAIN AT THIS TIME.) - EKG 1 Time of EKG reading by physician:: 16:20 EKG Read and Signed by:: Norm Rodriguez EKG Interpretation (*Must complete 3 of following elements*): Normal Rate: 64 Rhythm: NSR [place]: normal - XRAY 1 XRAY Study: Chest (EXAM: CHEST-2 VIEWS 04/02/2019 HISTORY: Chest pain TECHNIQUE: PA and lateral chest COMMENT: There is no evidence of acute cardiac or pulmonary disease. Compared to 11/23/2018 the inspiration is better otherwise there has been no significant change. IMPRESSION: No evidence of acute disease. Electronically signed by Jose Angel Regalado 04/02/2019 4:41 PM) Impression: See EMR Report - CHANGE OF SHIFT REPORT (ED Provider) 1 Report Given and Care Transferred to:: DR AGUIAR Time of Transfer: 19:00 (CTA CHEST ) Items Pending: CT/MRI Results <Norm Rodriguez - Last Filed: 04/02/19 19:08> - PLAN OF CARE/RESULTS Progress/Plan/Lab Results: Vital Signs - 8 hr 04/02/19 16:04 02/16/20 18:18 Temperature 97.7 F 98.3 F Pulse Rate 67 88 Respiratory Rate 14 21 Blood Pressure 119/75 161/87 O2 Sat by Pulse Oximetry 99 99 Laboratory Results - last 24 hr 04/02/19 04/02/19 04/02/19 16:15 16:15 16:15 WBC 7.47 RBC 4.96 Hgb 14.4 Hct 43.1 MCV 86.9 MCH 29.0 MCHC 33.4 RDW Std Deviation 13.2 Plt Count 280 MPV 9.4 Immature Gran % (Auto) 0.0 Neut % (Auto) 62.5 Lymph % (Auto) 28.0 [place] % (Auto) 6.6 Eos % (Auto) 2.1 Baso % (Auto) 0.8 Immature Gran # (Auto) 0.00 Neut # (Auto) 4.67 Lymph # (Auto) 2.09 [place] # (Auto) 0.49 Eos # (Auto) 0.16 Baso # (Auto) 0.06 PT INR PTT (Actin FS) D-Dimer, Quantitative Sodium 136 Potassium 4.2 Chloride 98 Carbon Dioxide 24 L Anion Gap 14 BUN 8 Creatinine 0.8 Estimated GFR/1.73 m2 > 60 BUN/Creatinine Ratio 10 Glucose 98 Calculated Osmolality 270 Calcium 9.3 Total Bilirubin 1.49 H AST 33 ALT 35 Alkaline Phosphatase 97 Creatine Kinase 227 H Creatine Kinase Index 1.6 CK-MB (CK-2) 3.63 Troponin T High Sens Xbp-K-Lrrajatpvqp Pept 128 Total Protein 7.0 Albumin 4.2 Globulin 2.8 Albumin/Globulin Ratio 1.5 04/02/19 04/02/19 04/02/19 16:15 16:15 16:15 WBC RBC Hgb Hct MCV MCH MCHC RDW Std Deviation Plt Count MPV Immature Gran % (Auto) Neut % (Auto) Lymph % (Auto) [place] % (Auto) Eos % (Auto) Baso % (Auto) Immature Gran # (Auto) Neut # (Auto) Lymph # (Auto) [place] # (Auto) Eos # (Auto) Baso # (Auto) PT 13.0 INR 0.97 PTT (Actin FS) 27.5 D-Dimer, Quantitative 2.11 H Sodium Potassium Chloride Carbon Dioxide Anion Gap BUN Creatinine Estimated GFR/1.73 m2 BUN/Creatinine Ratio Glucose Calculated Osmolality Calcium Total Bilirubin AST ALT Alkaline Phosphatase Creatine Kinase Creatine Kinase Index CK-MB (CK-2) Troponin T High Sens 28 H Agc-C-Syxvqwbszrt Pept Total Protein Albumin Globulin Albumin/Globulin Ratio 04/02/19 20:09 WBC RBC Hgb Hct MCV MCH MCHC RDW Std Deviation Plt Count MPV Immature Gran % (Auto) Neut % (Auto) Lymph % (Auto) [place] % (Auto) Eos % (Auto) Baso % (Auto) Immature Gran # (Auto) Neut # (Auto) Lymph # (Auto) [place] # (Auto) Eos # (Auto) Baso # (Auto) PT INR PTT (Actin FS) D-Dimer, Quantitative Sodium Potassium Chloride Carbon Dioxide Anion Gap BUN Creatinine Estimated GFR/1.73 m2 BUN/Creatinine Ratio Glucose Calculated Osmolality Calcium Total Bilirubin AST ALT Alkaline Phosphatase Creatine Kinase Creatine Kinase Index CK-MB (CK-2) Troponin T High Sens 56 H D Gpi-K-Djlondkloeg Pept Total Protein Albumin Globulin Albumin/Globulin Ratio Orders Category Date Time Status Cardiac Monitoring DIRECTED Care 04/02/19 16:08 Active Oxygen Therapy- ED Nursing DIRECTED Care 04/02/19 16:08 Active Saline Loc NOW Care 04/02/19 16:08 Active CHEST-2 VIEWS [RAD] Stat Exams 04/02/19 16:[address] ANGIOGRM PULMONARY ARTERIES [CT] Stat Exams 04/02/19 17:27 Completed CBC WITH ELECTRONIC DIFF [HEME] Stat Lab 04/02/19 16:15 Completed CK PROFILE [SP CHEM] Stat Lab 04/02/19 16:15 Completed COMPREHENSIVE METABOLIC PANEL [CHEM] Stat Lab 04/02/19 16:15 Completed D-DIMER [COAG] Stat Lab 04/02/19 16:15 Completed PRO B-NATRIURETIC PEPTIDE Stat Lab 04/02/19 16:15 Completed PROTIME WITH INR [COAG] Stat Lab 04/02/19 16:15 Completed PTT [COAG] Stat Lab 04/02/19 16:15 Completed TROPONIN T HIGH SENSITIVITY Stat Lab 04/02/19 16:15 Completed TROPONIN T HIGH SENSITIVITY Stat Lab 04/02/19 20:09 Completed Aspirin Med 04/02/19 16:08 Discontinued 325 mg PO NOW ONE CP/SOB/Palp >45 yrs of Age Stat Oth 04/02/19 16:08 Ordered EKG [EKG] Stat Ther 04/02/19 16:08 Draft Result Diagrams: 04/02/19 16:15 04/02/19 16:15 - CONSULTS/PCP/HOSPITALIST Notification #1 *Consult/PCP/Hospitalist*: Dr Palm Time Discussed: 20:59 Consult Disposition: Will see in ED, Admit <Brett Aguiar - Last Filed: 04/02/19 21:00> Departure <Norm Rodriguez - Last Filed: 04/02/19 19:08> - Departure Date of Disposition Decision: 04/02/19 Time of Disposition Decision: 20:59 Certified Medical Emergency: Emergent - Critical Care Note This patient required my direct & personal management of CC.: No <Brett Aguiar - Last Filed: 04/02/19 21:00> - Departure DIAGNOSIS: Chest pain, Elevated troponin Disposition: ADMITTED INPATIENT 09 Condition: Fair Referrals and Follow-Ups: Julieta Viera CRNP [Primary Care Provider] - Attestation - Physician/ LOBITO Attestation Patient care was provided by Advanced Practice Provider:: No The physician spent face to face time with patient:: Yes Advanced Practice Provider documentation review:: Supervising physician onsite and consulted in the evaluation and care of this patient. The physician did have a face to face encounter with the patient. <Brett Aguiar - Last Filed: 04/02/19 21:00> This chart was documented by the indicated scribe, (Tess Solitario, Joyceibe) and accurately reflects the services I performed and decisions made by me, Norm Rodriguez MD, as attested by the provider's signature.
--- NOTE | 2019-04-02 19:16 | Diag Imaging Result Doc PS360 ---
EXAM: CT ANGIOGRM PULMONARY ARTERIES 04/02/2019 HISTORY: difficulty breathing, left arm swollen TECHNIQUE: This exam was performed using automated exposure control, adjustment of mA or kV according to patient size, and/or use of iterative reconstruction technique. COMMENT: There are no previous studies. 3-D MIPS were performed. There are no filling defects in the pulmonary arteries. The aorta is normal in size without evidence of dissection. There are calcifications in the coronary arteries. There are no abnormal fluid collections. There is minimal platelike atelectasis in the right posterior costophrenic sulcus. No evidence of acute pulmonary parenchymal disease is present otherwise. The contrast was injected in the left arm. The left brachial, axillary, subclavian, innominate vein and superior vena cava are patent. There is no evidence of acute bony abnormality. IMPRESSION: No evidence of pulmonary emboli. Electronically signed by Jose Angel Regalado 04/02/2019 7:13 PM
[2019-04-02] MEDS ORDERED: ZOFRAN IV PRN (21:09)
[2019-04-02] MEDS ORDERED: TYLENOL PO PRN (21:09)
[2019-04-02] MEDS ORDERED: NITROGLYCERIN SL PRN (21:09)
--- NOTE | 2019-04-02 21:41 | HISTORY AND PHYSICAL ---
PRIMARY CARE PROVIDER: Julieta Viera. CHIEF COMPLAINT: Chest pain. HISTORY OF PRESENTING ILLNESS: A 68-year-old male with a history of hyperlipidemia who presented to emergency department 1-day history of having chest pain. He described it as sharp and was having shortness of breath. The patient was evaluated in the emergency department and due to his presenting symptoms, it was thought that we will place him for observation for further evaluation management. Time of my examination patient denied any headache, fever, chills, nausea, vomiting, diarrhea, hemoptysis, melena, weight changes, but complained of chest pain. PAST MEDICAL HISTORY: Includes hyperlipidemia. PAST SURGICAL HISTORY: None. ALLERGIES: No known drug allergies. CURRENT MEDICATIONS: None. SOCIAL HISTORY: No history of smoking, alcohol or illicit drug use. FAMILY HISTORY: Positive for coronary disease father. REVIEW OF SYSTEMS: Fourteen point review of systems is as in HPI. Other systems negative. PHYSICAL EXAMINATION: GENERAL: Cooperative, friendly male. He is resting comfortably now. VITAL SIGNS: Temperature 98.3 degrees, pulse 88, respirations 21, blood pressure 161/87. HEENT: Atraumatic, normocephalic. Extraocular movements intact. PERRLA. NECK: No masses. CHEST: Clear to auscultation. CARDIOVASCULAR: Regular rate and rhythm. ABDOMEN: Soft. Positive bowel sounds. EXTREMITIES: No edema. NEUROLOGIC: He is awake, alert, oriented x3. : No bladder distention. SKIN: Warm. LABORATORIES AND STUDIES: Sodium 136, potassium 4.2, chloride 98, CO2 24, BUN is 8, creatinine 0.8, glucose 98. Troponin T is 28. WBC 7.47, hemoglobin 14.4, hematocrit 43.1, platelets 280,000. CT angiogram, no evidence of any pulmonary emboli. ASSESSMENT: A 68-year-old male with a history of hyperlipidemia had presented to emergency department with 1-day history of having chest pain. We will place the patient for observation for further evaluation management. 1. Chest pain. 2. Hyperlipidemia. PLAN: 1. We will admit patient to medical floor with telemetry. 2. Continue with cardiac workup. Check EKG, serial cardiac enzymes. Have patient continue aspirin. Use sublingual nitroglycerin p.r.n. chest pain. 3. We will consult Cardiology. 4. We will check a lipid profile. 5. Put patient on DVT prophylaxis with SCDs. 6. We will continue to follow and reassess, make further recommendation based on patient's clinical course. cc: Tahir Palm MD
[2019-04-02 23:05] LABS: AGAP 14; BUN 8 mg/dL (8-22); CALCIUM 8.8 mg/dL (8.8-10.2); CHLORIDE 102 mmol/L (98-107); COSMO 280; CREATININE 0.8 mg/dL (0.7-1.2); ESTIMATED GFR > 60; GLUCOSE 98 mg/dL (70-104); POTASSIUM 3.6 mmol/L (3.5-5.1); SODIUM 141 mmol/L (136-145); TCO2 25 mmol/L (25-35)
[2019-04-03 06:10] LABS: CHOLESTEROL 196 mg/dL (0-200); CK PROFILE 151 U/L (24-204); HDL 39 mg/dL (35-55); LDL 136 mg/dL; TRIGLYCERIDES 106 mg/dL (39-160); VLDL 21 mg/dL
[2019-04-03] MEDS: PRILOSEC PO SCH (06:20)
[2019-04-03] MEDS ORDERED: ASPIRIN PO SCH (09:00)
--- NOTE | 2019-04-03 10:13 | EKG Report ---
Test Performed on : 04/03/2019 09:40:20 AM Test Reason : chest pain Blood Pressure : / mmHG Vent. Rate : 072 BPM Atrial Rate : 072 BPM P-R Int : 154 ms QRS Dur : 078 ms QT Int : 394 ms P-R-T Axes : 062 -02 026 degrees QTc Int : 431 ms Normal sinus rhythm. Normal ECG When compared with ECG of 02-APR-2019 15:57, (Unconfirmed) No significant change was found Confirmed by Johny Tabares MD ([id number]) on 04/04/2019 7:40:51 AM
--- NOTE | 2019-04-03 12:36 | Diag Imaging Result Doc PS360 ---
EXAM: MRI BRAIN W/WO CONTRAST INDICATION: r/o cva COMPARISON: CT head dated 03/23/2019. No prior MRI brain is available for comparison. FINDINGS: There is moderate diffuse brain atrophy. There is no evidence of acute infarct. The deep white matter signal is unremarkable. There is minimal T1 hyperintense material tracking along the right tentorial leaflet and the right occipital lobe. This is most compatible with a trace subdural hematoma. It is so small it may not even be perceptible on CT. There is no associated mass effect. No intracranial mass is appreciated. There is a punctate focus of subcortical low signal on this one sequence involving the right temporal lobe on image 27 of series 10. This could represent a solitary small cavernoma or a single amyloid plaque. The surrounding soft tissues and bony structures are essentially unremarkable. IMPRESSION: 1.Findings suggestive of trace subdural blood along the right tentorial leaflet and right occipital lobe. Please see above discussion. 2.Diffuse brain atrophy. 3.No evidence of acute infarct. Electronically signed by Reyes Licona 04/03/2019 12:34 PM
[2019-04-03] MEDS ORDERED: LEXISCAN ONE (12:39)
--- NOTE | 2019-04-03 13:34 | PROGRESS NOTE ---
DATE: 04/03/2019 SUBJECTIVE: Mr. Cross is a 68-year-old with history of hyperlipidemia, who presented to the emergency department with a 1-day history of having chest pain described as sharp, was having shortness of breath. The patient was evaluated in the emergency department due to his presenting symptoms, and thought we would put him in for observation. The patient is followed by BELLA Fabian. The patient has dementia, so it is difficult to know his history. His is at the bedside. He had had a recent fall, and they were going to check an MRI of his head. Apparently, the dementia has been progressing fairly rapid, and he had seen Dr. Abrams in the past. I think they are planning to do an EEG and an MRI. Past medical history is basically hyperlipidemia. He denies any chest pain at this time. Appears comfortable. OBJECTIVE: Vital Signs: Temp 97.9 degrees, he has remained afebrile, pulse 66, respirations 16, blood pressure 147/76. HEENT: Pupils are equal and round. Lungs: Clear in all lung vick. Cardiovascular: Regular rhythm and rate without murmur or S3. Abdomen: Soft. Skin: Warm and dry. LABORATORY DATA: White count 7470, hematocrit is 43, platelet count is 280,000. Sodium 136, potassium 4.2, chloride 98, BUN 8, creatinine 0.8. AST 33, ALT is 35, alkaline phosphatase is 97, albumin is 4.2. ProTime is 13, INR 0.97. ASSESSMENT AND PLAN: He had a chest x-ray done, and no evidence of acute disease. Pulmonary arteriogram was done, and no evidence of pulmonary emboli. I think the plan is to do an exercise stress test. Cardiology is following. Will see if we can get his MRI done. In fact, I think it was completed. His MRI of his brain, findings suggestive of trace subdural blood along the right temporal leaflet and right occipital lobe. Diffuse brain atrophy. No evidence of acute infarct, so he may have well had a subdural. It appears to be resolving. REVIEW OF ORDERS: Taking aspirin 325 mg a day. He is on omeprazole 20 mg daily. cc: Yaw Josue MD
--- NOTE | 2019-04-03 16:17 | Diag Imaging Result Document ---
PROCEDURE NAME: MYOCARDIAL PERF SCAN, STR/REST - 04/03/2019 STUDY: Lexiscan Cardiolite stress test. FINDINGS: Lexiscan was infused per standard protocol. There was no chest pain. Stress electrocardiogram was negative for ischemia. Following Lexiscan infusion, Cardiolite was injected. Total of 11.6 mCi of Cardiolite was injected for the rest phase; 33.8 mCi of Cardiolite was injected for the stress phase. Gated SPECT images were obtained in standard views. Images revealed significant chest wall and diaphragmatic attenuation. There is a low-grade, small-sized fixed defect in the base of the inferior wall suggestive of attenuation defect. Normal left ventricular cavity size. There is no evidence of ischemia. Left ventricular ejection fraction by gated SPECT was 85%. CONCLUSIONS: 1. No chest pain. 2. Negative Lexiscan stress electrocardiogram. 3. Myocardial perfusion images revealed no evidence of ischemia. 4. There is low-grade, small-sized fixed defect in the base of the inferior wall suggestive of attenuation defect. Low probability of scar. 5. Left ventricular ejection fraction by gated SPECT was 85%. cc: MD Anaya Walker PA
--- NOTE | 2019-04-03 16:36 | CARDIOLOGY CONSULTATION ---
DATE: 04/03/2019 CONSULTATION REQUESTED BY: Hospitalist service. REASON FOR CONSULT: Chest pain. HISTORY OF PRESENT ILLNESS: Mr. Cross is a 68-year-old male who suffers from Alzheimer disease, quite advanced, who presented to the hospital on the day of admission complaining of chest discomfort that had been going on for a few hours and it was intermittent and sharp with some associated nausea. The patient apparently had never experienced any discomfort of this nature and that alarmed the family, who decided to bring him to the emergency room. In the ER, they have done the basic testing, including EKG that shows no acute abnormalities. A CT of the chest shows coronary calcifications with no pulmonary embolism. The patient's blood work has been done and it reveals normal CK index. His troponins are borderline elevated with a troponin of 28, 56, and 47 ng/L. This is the high sensitivity and those values fall in the intermediate range. The patient at the time of my evaluation, which is 2:30 p.m.. Is not having any further complaints. PAST MEDICAL HISTORY: Positive for Alzheimer's dementia. He has hyperlipidemia. He has been intolerant to statins. PAST SURGICAL HISTORY: Negative. SOCIAL HISTORY: He is to his for many years. 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 He is not a smoker. Not a drinker. FAMILY HISTORY: Father had coronary heart disease. ALLERGIES: Latex and natural rubber. HOME MEDICATIONS: At this time are negative. He is not taking anything. REVIEW OF SYSTEMS: He has developed speech disturbance like dysphasia for the past 3 years. He was admitted to [facility] on March 23 of this year and at that time he was seen in consultation by Dr. Abrams, who felt that the patient had suffered a recent fall with transient unconsciousness with increased confusion. They have done a brain MRI today that reveals findings suggestive of a trace subdural blood along the right tentorial leaflet and right occipital lobe, diffuse brain atrophy, and no acute infarct. At the time of his discharge from [facility] on March 26, they felt that he had suffered some sort of neurological event of uncertain etiology. Of note, the CT scan of the chest shows some diffuse thickening of mild degree of esophagus. The patient may have esophagitis. PHYSICAL EXAMINATION: Vital signs: Today shows a blood pressure 138/69, pulse 63, temperature 98.2 degrees, respirations 18. General: Patient is awake, alert, oriented, in no distress. HEENT: Unremarkable. Chest: Clear to auscultation and percussion. Heart: Sounds regular and rhythmic. No gallop or murmur. Abdomen: Nontender. Extremities: Show no edema. Neurologic: Nonfocal. Moves 4 extremities. BLOOD WORK: Sodium 141, potassium 3.6, BUN 8, creatinine 0.8. Cholesterol 196, LDL 136, triglycerides 106. IMPRESSIONS: 1. Patient who presented with chest pain very atypical. 2. Alzheimer's dementia, advanced. 3. Hyperlipidemia. 4. Recent fall with MRI evidence of suggestion of a small subdural hematoma. 5. Elevation of High Sensitivity Troponin, question of NON STEMI. RECOMMENDATION: We have at this time order a Lexiscan MPI stress test that I have reviewed and indicates normal myocardial perfusion, no ischemia. Given his normal EKGs, at this time I do not think we need to pursue any further investigation. The troponin elevation is probably nonspecific. I cannot exclude the possibility of small pulmonary infarction or pericarditis. In addition, in cases of intracranial bleed, due to hyperadrenergic state, small non ST [place] in the form of troponin leaks may occur (even Takotsubo's). In his case his echocardiogram does not support that. At any rate, I do not think we need to chelsie any more cardiac diagnosis at this time. The patient will be observed probably overnight and if he is feeling better by tomorrow, I think he may be discharged. I believe Dr. Abrams needs to be made aware of the finding of the brain MRI. cc: Frank Oconnor MD [facility]
--- NOTE | 2019-04-03 16:42 | ECHO REPORT ---
ORDER DATE: 04/03/2019 INTERPRETING PHYSICIAN: Dr. Bakari Vargas ECHOCARDIOGRAPHIC MEASUREMENTS: 1. Interventricular septum: 0.8 cm. 2. Left ventricular posterior wall: 0.8 cm. 3. Diastolic diameter: 5.0 cm. 4. Left atrium: 4 cm. 5. Aortic root: 3.2 cm. SUMMARY OF THE 2-DIMENSIONAL IMAGIN. Tricuspid valve was normal. 2. Pulmonic valve was normal. There is mild pulmonary regurgitation. 3. Aortic valve leaflets mildly sclerosed and trileaflet. 4. Normal left ventricular cavity size. Estimated ejection fraction of 65%. 5. There is mild mitral regurgitation. 6. There is mild tricuspid regurgitation. Peak velocity across the tricuspid valve was 3.2 m/sec. 7. Pulmonary artery systolic pressure of 51 mmHg. 8. Peak velocity across the aortic valve was less than 2 m/sec. There is no aortic stenosis. There is [id number] aortic regurgitation. 9. There is no pericardial effusion or obvious intracardiac mass or thrombus seen. 10. Left atrial enlargement. cc: MD Anaya Walker PA
[2019-04-04] MEDS: PRILOSEC PO SCH ×2 (05:45→07:00)
[2019-04-04 12:03] VITALS: BP 137/78
--- NOTE | 2019-04-05 06:57 | DISCHARGE SUMMARY ---
ADMISSION DATE: 04/02/2019 DISCHARGE DATE: 04/04/2019 DATE OF DISCHARGE/LEAVING AGAINST MEDICAL ADVICE: 04/04/2019. CONSULTATION DURING ADMISSION: Cardiology was consulted. Patient was seen by Dr. Oconnor. IMAGING STUDIES OF SIGNIFICANCE: 1. Chest x-ray showed no evidence of acute disease. 2. CTA showed no evidence of pulmonary emboli. 3. Echocardiogram showed an ejection fraction of 65%. 4. A perfusion scan shows low probability of scar in the base of the inferior wall or attenuation defect. 5. An MRI of the brain shows trace subdural blood along the right tentorial leaflet and right occipital lobe. There was a diffuse brain atrophy. No evidence of acute infarct. ADMISSION DIAGNOSES: 1. Chest pain. 2. Dyslipidemia. DIAGNOSES AT TIME OF LEAVING AGAINST MEDICAL ADVICE: 1. Atypical chest pain on presentation with mildly elevated troponins concerning for non STEMI. 2. Alzheimer's dementia. 3. Small subdural hematoma picked up on an MRI. 4. Dyslipidemia. PRESENTING COMPLAINT: Chest pain. HISTORY OF PRESENTING COMPLAINT: Mr. Cross is a 68-year-old male with a history of dyslipidemia presented to the emergency room because of chest pain. He was evaluated. Initial EKGs were unremarkable. However, the high sensitivity troponin were minimally elevated. The patient was evaluated by Cardiology. A stress test was done which was for the most part unremarkable. Echocardiogram showed ejection fraction of 65 with no wall motion abnormality. An MRI was also done which showed a trace of small right occipital lobe subdural hematoma. Mr. Cross was yet to be re-evaluated by Cardiology. However, he was very adamant on leaving against medical advise stating that he had many things to do. I understand the was at the bedside with him who was also in agreement for the to sign against medical advice. I was not able to even see Mr. Cross before he left the hospital. cc: Jayden Grayson MD
== END 2019-04-04 16:14 | disposition left against medical advice (07) ==
LOC: ED 15:56 → SUATTDRO 23:11 → EDIPHOLD 23:11 → INTOOBSV 23:11 → EDIPHOLD 04-03 09:36 → 4N 04-03 14:51
PROVIDERS: ATTEND Internal Medicine